=== PATIENT | female | born 1970 | race Caucasian/White ===

== ENCOUNTER → 2016-06-04 | Outpatient (REF) | payer OTHER ==
[~2016-06-04] MED LIST: MECL-68 PO; MOTRIN PO; NO HISTORICAL MEDS; NORC5TAB PO
== END ==
LOC: M SFHCPLAZ 16:46
PROVIDERS: ATTEND Nurse Practitioner Family
DX: J02.9 Acute pharyngitis, unspecified (principal)

== ENCOUNTER 2016-06-13 07:03 | Emergency (ER) | payer MEDICAID, OTHER, SELFPAY ==
--- NOTE | 2016-06-13 07:51 | EDDOCDS ---
Nurse's Notes [facility] Name: Thi Sandoval Age: 45 yrs Sex: Female : 1970 Arrival Date: 06/13/2016 Time: 07:03 Bed I1 / M1 Private MD: Diagnosis: Sprain of unspecified ligament of left ankle Presentation: 06/13 07:12 Presenting complaint: Patient states: pain left ankle. reports fell last night and kr3 twisted left ankle. Difficulty with weight bearing. Adult Sepsis Screening: The patient does not have new or worsening altered mentation. Patient's respiratory rate is less than 22. Systolic blood pressure is greater than 100. Patient has a qSOFA score of 0- Negative Sepsis Screen. Suicide/Homicide risk assessment- the patient denies having any suicidal and/or homicidal ideations and does not present with any other emotional, behavioral or mental health complaints. Status: Patient is not a member services coordinator or dependent. Transition of care: patient was not received from another setting of care. 07:12 Acuity: ROCIO Level 4 kr3 07:12 Method Of Arrival: Wheelchair kr3 Triage Assessment: 07:16 General: Appears comfortable, Behavior is appropriate for age, cooperative. Pain: kr3 Location: left ankle Pain currently is 6 out of 10 on a pain scale. At worst was 10 out of 10 on a pain scale. Aggravated by weight bearing. Pt Declines HIV testing. Neurological: No deficits noted. Respiratory: Respiratory effort is even, unlabored. Derm: Skin is normal. Musculoskeletal: Swelling present in left ankle. 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 Plaquenil 200 mg Oral tab 2 times per day 2. Folic Acid Oral once daily 3. Methotrexate Sodium Oral 4 tabs weekly 4. Singulair Oral once daily - PMHx: Lupus; - PSHx: Sinus Surgery; left hand; - Social history: Smoking status: Patient uses tobacco products, current every day smoker. No barriers to communication noted, The patient speaks fluent Salvadorean, Speaks appropriately for age. - Family history: Not pertinent. - : The pt / caregiver states he / she is not on anticoagulants. Home medication list is obtained from the patient. - Exposure Risk Screening:: None identified. Screenin:45 Screening information is obtained from the patient. Primary language is Salvadorean. Fall jam1 risk: No risks identified. Assistance ADL's: requires no assistance with activities of daily living. Abuse/DV Screen: The patient / caregiver reports he/she is: not in a situation that causes fear, pain or injury. Nutritional screening: No deficits noted. Exposure Risk Screening: None identified. Advance Directives: Currently, there is no health care proxy. There is no active DNR order. There is no living will. There is no Power of Sustainable Systems Analyst. Advance directive information has not previously been placed in an [facility] medical record. Further advance directive information is declined. home support is adequate. Assessment: 07:49 General: Appears well developed, well nourished, well groomed, Behavior is cooperative. dls Neurological: No deficits noted. EENT: No deficits noted. Cardiovascular: No deficits noted. Respiratory: No deficits noted. GI: No deficits noted. : No deficits noted. Derm: No deficits noted. Musculoskeletal: No deficits noted. Vital Signs: 07:16 BP 130 / 76; Pulse 98; Resp 16; Temp 97.4(O); Pulse Ox 99% ; Weight 94.8 kg (R); Height kr3 5 ft. 1 in. (154.94 cm) (R); 07:16 Body Mass Index 39.49 (94.80 kg, 154.94 cm) kr3 Vitals: 07:16 Log In Time: June 13, 2016 at 07:01. kr3 ED Course: 07:04 Patient visited by Kierra Levin. gjb 07:04 Patient moved to Waiting gjb 07:13 Triage Initiated kr3 07:20 Patient moved to I1 / M1 kr3 07:26 [facility]os[facility] Park [facility] ar2 07:26 Ty Jones MD is Attending Physician. ar2 07:30 Patient visited by Yosvany Park PA-C. ar2 07:41 Jeremie Gregory is Referral Physician. ar2 07:44 air cast left foot. jam1 07:50 The patient / caregiver is instructed regarding the plan of care and ED course. dls 07:50 No IV's were initiated during this patient's visit. No procedures done that require dls assistance. Order Results: There are currently no results for this order. Outcome: 07:42 Discharge ordered by Provider. ar2 07:50 Discharge Assessment: Patient awake, alert and oriented x 3. No cognitive and/or dls functional deficits noted. Patient verbalized understanding of disposition instructions. patient administered narcotics - no. The following High Risk Discharge criteria are identified: None. Discharged to home via wheelchair, with friend. Condition: stable. Discharge instructions given to patient, Instructed on discharge instructions, follow up and referral plans. medication usage, Demonstrated understanding of instructions, medications, Pt was receptive of discharge instructions/ teaching. Prescriptions given X 1. No special radiology studies were completed. Property sent home with patient. 07:51 Patient left the ED. dls Signatures: Sarah Chau, RN RN dls Josefa Leblanc, MARKETING ADMINISTRATIVE ASSISTANT MARKETING ADMINISTRATIVE ASSISTANT jam1 Kim Ferrara,RN RN kr3 Yosvany Park, ELOY-Gissell PA-Kierra Lynne TAZ
--- NOTE | 2016-06-13 07:51 | EDDOCDS ---
Physician Documentation [facility] Name: Thi Sandoval Age: 45 yrs Sex: Female : 1970 Arrival Date: 06/13/2016 Time: 07:03 Bed I1 / M1 Private MD: Disposition: 06/13/16 07:42 Discharged to Home/Self Care. Impression: Sprain of unspecified ligament of left ankle. - Condition is Stable. - Discharge Instructions: Elastic Bandage and RICE, Ankle Sprain. - Prescriptions for Ultram 50 mg Oral Tablet - take 1 tablet by ORAL route every 6 hours As needed MDD: 4 tabs; 12 tablet. - Medication Reconciliation, Local Pharmacy Hours form. - Follow up: Private Physician; When: Call to arrange an appointment; Reason: Recheck today's complaints. Follow up: Jeremie Gregory; When: As needed; Reason: Recheck today's complaints. - Problem is new. - Symptoms are unchanged. Historical: - Allergies: Codeine Sulfate (Vomit); - Home Meds: 1. Plaquenil 200 mg Oral tab 2 times per day 2. Folic Acid Oral once daily 3. Methotrexate Sodium Oral 4 tabs weekly 4. Singulair Oral once daily - PMHx: Lupus; - PSHx: Sinus Surgery; left hand; - Social history: Smoking status: Patient uses tobacco products, current every day smoker. No barriers to communication noted, The patient speaks fluent Syriac, Speaks appropriately for age. - Family history: Not pertinent. - : The pt / caregiver states he / she is not on anticoagulants. Home medication list is obtained from the patient. - Exposure Risk Screening:: None identified. 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 1 in. (154.94 cm) (R); 07:16 Body Mass Index 39.49 (94.80 kg, 154.94 cm) kr3 MDM: 07:21 Ankle, Complete Ordered. EDMS 07:38 Apply Air Cast to Patient. ordered. ar2 Signatures: Dispatcher MedHost EDMS Sarah Chau RN RN dls Kim Ferrara RN RN kr3 Yosvany Park PARupesh PARupesh ar2 The chart was reviewed and I authenticate all verbal orders and agree with the evaluation and treatment provided.Corrections: (The following items were deleted from the chart) 07:46 07:38 Crutches ordered. ar2 dls MTDD
--- NOTE | 2016-06-13 09:09 | REP ---
Left ankle series: Four views. History: Twisting injury in a fall. Findings: Four views of the left ankle demonstrate an intact ankle mortise. No fracture or subluxation is seen. Impression: Negative left ankle series. Signed by Coy Burgess MD 06/13/2016 01:10 P
--- NOTE | 2016-06-15 08:52 | EDDOCDS ---
Nurse's Notes [facility] Name: Thi Sandoval Age: 45 yrs Sex: Female : 1970 Arrival Date: 06/13/2016 Time: 07:03 Bed I1 / M1 Private MD: Diagnosis: Sprain of unspecified ligament of left ankle Presentation: 06/13 07:12 Presenting complaint: Patient states: pain left ankle. reports fell last night and kr3 twisted left ankle. Difficulty with weight bearing. Adult Sepsis Screening: The patient does not have new or worsening altered mentation. Patient's respiratory rate is less than 22. Systolic blood pressure is greater than 100. Patient has a qSOFA score of 0- Negative Sepsis Screen. Suicide/Homicide risk assessment- the patient denies having any suicidal and/or homicidal ideations and does not present with any other emotional, behavioral or mental health complaints. Status: Patient is not a sales agent food vending service or dependent. Transition of care: patient was not received from another setting of care. 07:12 Acuity: ROCIO Level 4 kr3 07:12 Method Of Arrival: Wheelchair kr3 Triage Assessment: 07:16 General: Appears comfortable, Behavior is appropriate for age, cooperative. Pain: kr3 Location: left ankle Pain currently is 6 out of 10 on a pain scale. At worst was 10 out of 10 on a pain scale. Aggravated by weight bearing. Pt Declines HIV testing. Neurological: No deficits noted. Respiratory: Respiratory effort is even, unlabored. Derm: Skin is normal. Musculoskeletal: Swelling present in left ankle. 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 Plaquenil 200 mg Oral tab 2 times per day 2. Folic Acid Oral once daily 3. Methotrexate Sodium Oral 4 tabs weekly 4. Singulair Oral once daily - PMHx: Lupus; - PSHx: Sinus Surgery; left hand; - Social history: Smoking status: Patient uses tobacco products, current every day smoker. No barriers to communication noted, The patient speaks fluent Kazakh, Speaks appropriately for age. - Family history: Not pertinent. - : The pt / caregiver states he / she is not on anticoagulants. Home medication list is obtained from the patient. - Exposure Risk Screening:: None identified. Screenin:45 Screening information is obtained from the patient. Primary language is Kazakh. Fall jam1 risk: No risks identified. Assistance ADL's: requires no assistance with activities of daily living. Abuse/DV Screen: The patient / caregiver reports he/she is: not in a situation that causes fear, pain or injury. Nutritional screening: No deficits noted. Exposure Risk Screening: None identified. Advance Directives: Currently, there is no health care proxy. There is no active DNR order. There is no living will. There is no Power of Retail Director. Advance directive information has not previously been placed in an [facility] medical record. Further advance directive information is declined. home support is adequate. Assessment: 07:49 General: Appears well developed, well nourished, well groomed, Behavior is cooperative. dls Neurological: No deficits noted. EENT: No deficits noted. Cardiovascular: No deficits noted. Respiratory: No deficits noted. GI: No deficits noted. : No deficits noted. Derm: No deficits noted. Musculoskeletal: No deficits noted. Vital Signs: 07:16 BP 130 / 76; Pulse 98; Resp 16; Temp 97.4(O); Pulse Ox 99% ; Weight 94.8 kg (R); Height kr3 5 ft. 1 in. (154.94 cm) (R); 07:16 Body Mass Index 39.49 (94.80 kg, 154.94 cm) kr3 Vitals: 07:16 Log In Time: June 13, 2016 at 07:01. kr3 ED Course: 07:04 Patient visited by Kierra Levin. gjb 07:04 Patient moved to Waiting gjb 07:13 Triage Initiated kr3 07:20 Patient moved to I1 / M1 kr3 07:26 Yosvany Park [facility] ar2 07:26 Ty Jones MD is Attending Physician. ar2 07:30 Patient visited by Yosvany Park PA-C. ar2 07:41 Jeremie Gregory is Referral Physician. ar2 07:44 air cast left foot. jam1 07:50 The patient / caregiver is instructed regarding the plan of care and ED course. dls 07:50 No IV's were initiated during this patient's visit. No procedures done that require dls assistance. 09:13 Ankle, Complete Returned. EDMS 09:23 [facility] Payment Agreement was scanned into Xfire and attached to record. lg 19:46 T-Sheet-- Draft Copy was scanned into Xfire and attached to record. klr Order Results: Radiology Order: Ankle, Complete Test: Ankle, Complete REASON FOR EXAMINATION: twisted ankle with fall; Left ankle series: Four views.; ; History: Twisting injury in a fall.; ; Findings: Four views of the left ankle demonstrate an intact ankle mortise. No; fracture or subluxation is seen.; ; Impression:; ; Negative left ankle series.; ; ; Signed by; Coy Burgess MD 06/13/2016 01:10 P; Outcome: 07:42 Discharge ordered by Provider. ar2 07:50 Discharge Assessment: Patient awake, alert and oriented x 3. No cognitive and/or dls functional deficits noted. Patient verbalized understanding of disposition instructions. patient administered narcotics - no. The following High Risk Discharge criteria are identified: None. Discharged to home via wheelchair, with friend. Condition: stable. Discharge instructions given to patient, Instructed on discharge instructions, follow up and referral plans. medication usage, Demonstrated understanding of instructions, medications, Pt was receptive of discharge instructions/ teaching. Prescriptions given X 1. No special radiology studies were completed. Property sent home with patient. 07:51 Patient left the ED. dls Signatures: Dispatcher [employer]Ho EDMS Sarah Chau, RN RN dls Josefa Leblanc, MINGLER OPERATOR MINGLER OPERATOR jam1 Haris Alba, Reg Reg lg Kim Ferrara RN RN kr3 Yosvany Park, PA-Gissell PA-C Kierra Cloud Kathie klhayley Chart Complete MTDD
--- NOTE | 2016-06-15 08:52 | EDDOCDS ---
Physician Documentation [facility] Name: Thi Sandoval Age: 45 yrs Sex: Female : 1970 Arrival Date: 06/13/2016 Time: 07:03 Bed I1 / M1 Private MD: Disposition: 06/13/16 07:42 Discharged to Home/Self Care. Impression: Sprain of unspecified ligament of left ankle. - Condition is Stable. - Discharge Instructions: Elastic Bandage and RICE, Ankle Sprain. - Prescriptions for Ultram 50 mg Oral Tablet - take 1 tablet by ORAL route every 6 hours As needed MDD: 4 tabs; 12 tablet. - Medication Reconciliation, Local Pharmacy Hours form. - Follow up: Private Physician; When: Call to arrange an appointment; Reason: Recheck today's complaints. Follow up: Jeremie Gregory; When: As needed; Reason: Recheck today's complaints. - Problem is new. - Symptoms are unchanged. Historical: - Allergies: Codeine Sulfate (Vomit); - Home Meds: 1. Plaquenil 200 mg Oral tab 2 times per day 2. Folic Acid Oral once daily 3. Methotrexate Sodium Oral 4 tabs weekly 4. Singulair Oral once daily - PMHx: Lupus; - PSHx: Sinus Surgery; left hand; - Social history: Smoking status: Patient uses tobacco products, current every day smoker. No barriers to communication noted, The patient speaks fluent Kinyarwanda, Speaks appropriately for age. - Family history: Not pertinent. - : The pt / caregiver states he / she is not on anticoagulants. Home medication list is obtained from the patient. - Exposure Risk Screening:: None identified. 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 1 in. (154.94 cm) (R); 07:16 Body Mass Index 39.49 (94.80 kg, 154.94 cm) kr3 MDM: 07:21 Ankle, Complete Ordered. EDMS 07:38 Apply Air Cast to Patient. ordered. ar2 09:23 [facility] Payment Agreement was scanned into MEDHOST and attached to record. lg 19:46 T-Sheet-- Draft Copy was scanned into [employer]a-[employer] Mobile and attached to record. klr Signatures: Dispatcher MedHost Sarah Rubin RN RN Haris Freitas, Gentry Reg Kim Ferrara RN RN kr3 Yosvany Park, Cassie Bennett PA-C The chart was reviewed and I authenticate all verbal orders and agree with the evaluation and treatment provided.Corrections: (The following items were deleted from the chart) 07:46 07:38 Crutches ordered. ramez vázquez Attachments: 09:23 [facility] Payment Agreement lg 19:46 T-Sheet-- Draft Copy klr Chart Complete MTDD
--- NOTE | 2016-06-15 08:52 | EDDOCDS ---
Physician Documentation [facility] Name: Thi Sandoval Age: 45 yrs Sex: Female : 1970 Arrival Date: 06/13/2016 Time: 07:03 Bed I1 / M1 Private MD: Disposition: 06/13/16 07:42 Discharged to Home/Self Care. Impression: Sprain of unspecified ligament of left ankle. - Condition is Stable. - Discharge Instructions: Elastic Bandage and RICE, Ankle Sprain. - Prescriptions for Ultram 50 mg Oral Tablet - take 1 tablet by ORAL route every 6 hours As needed MDD: 4 tabs; 12 tablet. - Medication Reconciliation, Local Pharmacy Hours form. - Follow up: Private Physician; When: Call to arrange an appointment; Reason: Recheck today's complaints. Follow up: Jeremie Gregory; When: As needed; Reason: Recheck today's complaints. - Problem is new. - Symptoms are unchanged. Historical: - Allergies: Codeine Sulfate (Vomit); - Home Meds: 1. Plaquenil 200 mg Oral tab 2 times per day 2. Folic Acid Oral once daily 3. Methotrexate Sodium Oral 4 tabs weekly 4. Singulair Oral once daily - PMHx: Lupus; - PSHx: Sinus Surgery; left hand; - Social history: Smoking status: Patient uses tobacco products, current every day smoker. No barriers to communication noted, The patient speaks fluent Bengali, Speaks appropriately for age. - Family history: Not pertinent. - : The pt / caregiver states he / she is not on anticoagulants. Home medication list is obtained from the patient. - Exposure Risk Screening:: None identified. 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 1 in. (154.94 cm) (R); 07:16 Body Mass Index 39.49 (94.80 kg, 154.94 cm) kr3 MDM: 07:21 Ankle, Complete Ordered. EDMS 07:38 Apply Air Cast to Patient. ordered. ar2 09:23 [facility] Payment Agreement was scanned into MEDHOST and attached to record. lg 19:46 T-Sheet-- Draft Copy was scanned into MEDHOCell[employer] and attached to record. klr Signatures: Dispatcher MedHost Sarah Rubin RN RN Haris Freitas, Gentry Reg Kim Ferrara RN RN kr3 Yosvany Park, Cassie Bennett PA-C The chart was reviewed and I authenticate all verbal orders and agree with the evaluation and treatment provided.Corrections: (The following items were deleted from the chart) 07:46 07:38 Crutches ordered. ramez vázquez Attachments: 09:23 [facility] Payment Agreement lg 19:46 T-Sheet-- Draft Copy klr Chart Complete MTDD
== END 2016-06-13 07:51 | disposition home or self-care (01) ==
LOC: M ED 07:03
DX: S93.402A Sprain of unspecified ligament of left ankle, initial encounter (principal); M32.9 Systemic lupus erythematosus, unspecified; F17.210 Nicotine dependence, cigarettes, uncomplicated; Z79.899 Other long term (current) drug therapy; Z88.5 Allergy status to narcotic agent; X50.1XXA Overexertion from prolonged static or awkward postures, initial encounter; Y92.410 Unspecified street and highway as the place of occurrence of the external cause; Y93.01 Activity, walking, marching and hiking; Y99.9 Unspecified external cause status

== ENCOUNTER → 2016-08-17 | Outpatient (REF) | payer OTHER | LOC: M LAB REF 16:59 | PROVIDERS: ATTEND Physician Assistant Medical | DX: J01.40 Acute pansinusitis, unspecified (principal) ==

== ENCOUNTER → 2016-09-17 | Outpatient (REF) | payer OTHER | LOC: M SFHCWAGY 14:00 | PROVIDERS: ATTEND Nurse Practitioner Women's Health | DX: Z12.4 Encounter for screening for malignant neoplasm of cervix (principal) ==

== ENCOUNTER → 2016-09-17 | Outpatient (CLI) | payer OTHER ==
--- NOTE | 2016-09-17 14:47 | REPMRS ---
Patient History The patient states she had a clinical breast exam in 08/2016. Patient is nulliparous. Family history of breast cancer in paternal aunt under age 50 and breast cancer in paternal grandmother at age 78. Digital Woman Screen Mammo: September 17, 2016 - Exam #: [id number] Bilateral CC and MLO view(s) were taken. Technologist: Deborah Dunaway, Technologist FINDINGS: The breast tissue is heterogeneously dense. This may lower the sensitivity of mammography. There is no evidence of cancer on this mammogram. ASSESSMENT: BI-RADS/ACR category 2 mammogram. Benign finding(s). Recommendation Routine screening mammogram of both breasts in 1 year (for women over age 40). This mammogram was interpreted with the aid of an FDA-approved computer-aided dectection system. Electronically Signed By: Hermilo Valdovinos MD 09/17/16 [id number]
== END ==
LOC: M WHC 13:02
PROVIDERS: ATTEND Nurse Practitioner Women's Health
DX: Z12.31 Encounter for screening mammogram for malignant neoplasm of breast (principal); Z80.3 Family history of malignant neoplasm of breast

== ENCOUNTER → 2016-10-27 | Outpatient (REF) | payer OTHER | LOC: M SFHCPLAZ 15:14 | PROVIDERS: ATTEND Nurse Practitioner Family | DX: Z00.00 Encounter for general adult medical examination without abnormal findings (principal); M32.9 Systemic lupus erythematosus, unspecified; Z13.220 Encounter for screening for lipoid disorders ==

== ENCOUNTER → 2016-11-15 | Outpatient (CLI) | payer OTHER ==
[2016-11-15 13:28] LABS: BASO % 0.5 % (0.0-1.0); EOS # 0.2 K/mm3 (0.0-0.50); EOS % 2.2 % (0.0-3.0); LARGE UNSTAINED CELL # 0.1 K/mm3 (0.0-0.4); LARGE UNSTAINED CELL % 1.3 % (0.0-4.0); LYMPH # 1.5 K/mm3 (1.5-4.5); LYMPH % 19.5 % (24.0-44.0); MEAN CORPUSCULAR HEMOGLOBIN 32.8 pg (27.0-33.0); MEAN CORPUSCULAR HGB CONC 33.4 g/dl (32.0-36.5); MEAN CORPUSCULAR VOLUME 98.2 fl (80.0-96.0); MONO # 0.4 K/mm3 (0.0-0.8); MONO % 4.9 % (0.0-5.0); NEUTROPHILS # 5.3 K/mm3 (1.8-7.7); NEUTROPHILS % 71.6 % (36.0-66.0); PLATELET COUNT, AUTOMATED 292 k/mm3 (150-450); RED CELL DISTRIBUTION WIDTH 13.6 % (11.5-14.5); WHITE BLOOD COUNT 7.4 K/mm3 (4.0-10.0)
[2016-11-15 14:27] LABS: ALBUMIN 3.5 GM/DL (3.2-5.2); ALBUMIN/GLOBULIN RATIO 0.95 (1.00-1.93); ALKALINE PHOSPHATASE 82 U/L (45-117); ALT/SGPT 24 U/L (12-78); ANION GAP 6 MEQ/L (8-16); AST/SGOT 19 U/L (15-37); BILIRUBIN,TOTAL 0.4 MG/DL (0.2-1.0); BLOOD UREA NITROGEN 12 MG/DL (7-18); CARBON DIOXIDE LEVEL 29 MEQ/L (21-32); CHLORIDE LEVEL 108 MEQ/L (98-107); CHOLESTEROL LEVEL 177 MG/DL (<200); CREATININE FOR GFR 0.73 MG/DL (0.55-1.02); GLOMERULAR FILTRATION RATE > 60.0 (>58); GLUCOSE, FASTING 83 MG/DL (70-105); POTASSIUM SERUM 4.3 MEQ/L (3.5-5.1); SODIUM LEVEL 143 MEQ/L (136-145); TOTAL PROTEIN 7.2 GM/DL (6.4-8.2); TRIGLYCERIDES LEVEL 89 MG/DL (<150)
== END ==
LOC: M LAB 12:27
PROVIDERS: ATTEND Nurse Practitioner Family
DX: M32.9 Systemic lupus erythematosus, unspecified (principal); K21.9 Gastro-esophageal reflux disease without esophagitis; Z13.220 Encounter for screening for lipoid disorders

== ENCOUNTER → 2017-05-03 | Outpatient (CLI) | payer OTHER ==
--- NOTE | 2017-05-03 11:14 | REP ---
Maxillofacial CT study without contrast: History: Chronic sinusitis. Comparison study from October 19, 2012. Technique: Helical scanning is acquired and axial 3 mm slices are reviewed along with coronal multiplanar reformation images. Findings: No intraorbital abnormality is seen. Visualized intracranial structures are unremarkable. There is moderate mucosal thickening affecting the maxillary sinuses bilaterally. On the right, this is generally a little more prominent than on the prior study of October 19, 2012. On the left it is essentially unchanged. There is a small bony density in the inferior aspect of the left maxillary sinus which is unchanged. The nasal turbinate soft tissues are improved. No polyp is seen today. The patient is status post bilateral ethmoidectomy and nasoantral window. These appear patent. Small frontal sinuses are clear. Mastoid aeration is normal and symmetric. No bony destructive lesion is seen. Mild bowing of the superior aspect of the nasal septum is again seen without a septal beak. Impression: Improved nasal findings. No evidence of polyp. Status post ethmoidectomy and nasoantral window bilaterally. Chronic moderate bilateral maxillary sinus mucosal thickening unchanged on the left and more prominent on the right. Signed by Coy Burgess MD 05/03/2017 03:59 P
== END ==
LOC: M RAD 10:22
PROVIDERS: ATTEND Physician Assistant Medical
DX: J32.1 Chronic frontal sinusitis (principal); J33.1 Polypoid sinus degeneration

== ENCOUNTER 2017-09-22 08:32 | Day surgery (SDC) | payer OTHER ==
[2017-09-22] MEDS: LR 1,000 ML IV (09:13)
[2017-09-22 09:42] LABS: CONTROL LINE UCG INT CTR LINE PRESENT; URINE PREG TEST NEGATIVE (NEGATIVE)
[2017-09-22] MEDS ORDERED: LIDOCAINE 2% INJ 100 MG/5 ML SDV (FOR ANES.) As Ordered (10:41)
[2017-09-22] MEDS ORDERED: KETOROLAC 60 MG/2 ML VIAL (J1885) As Ordered (10:41)
[2017-09-22] MEDS ORDERED: dexameTHASONE 4 MG/ML 1ML VIAL (J1100) As Ordered (10:41)
[2017-09-22] MEDS ORDERED: ONDANSETRON 4MG/2ML VIAL (J2405) As Ordered ×2 (10:41→11:59)
[2017-09-22] MEDS ORDERED: PROPOFOL 200 MG/20 ML VIAL As Ordered (10:41)
[2017-09-22] MEDS ORDERED: fentaNYL 100 MCG/2 ML INJECTION (J3010) As Ordered ×2 (10:42→12:00)
[2017-09-22] MEDS ORDERED: MIDAZOLAM INJ 2 MG/2 ML VIAL (J2250) As Ordered (10:42)
[2017-09-22] MEDS: CIPRODEX OTIC SUSP 7.5ML As Ordered (11:42)
[2017-09-22] MEDS: fentaNYL 100 MCG/2 ML INJECTION (J3010) IV ×4 (12:00→12:15)
[2017-09-22] MEDS ORDERED: PERCOCET 5MG/325MG TAB As Ordered (12:00)
[2017-09-22] MEDS: PERCOCET 5MG/325MG TAB PO (12:05)
[2017-09-22] MEDS: ONDANSETRON 4MG/2ML VIAL (J2405) IV (12:10)
[2017-09-22] MEDS ORDERED: LR 1,000 ML IV ×2 (12:15)
== END 2017-09-22 13:55 | disposition home or self-care (01) ==
LOC: M SDC 08:32
DX: H65.21 Chronic serous otitis media, right ear (principal); M32.9 Systemic lupus erythematosus, unspecified; K44.9 Diaphragmatic hernia without obstruction or gangrene; K21.9 Gastro-esophageal reflux disease without esophagitis; D68.9 Coagulation defect, unspecified; F41.9 Anxiety disorder, unspecified; G43.909 Migraine, unspecified, not intractable, without status migrainosus; Z88.5 Allergy status to narcotic agent; Z91.040 Latex allergy status; Z79.899 Other long term (current) drug therapy; Z72.0 Tobacco use; Z87.81 Personal history of (healed) traumatic fracture
CPT/HCPCS: 69436

== ENCOUNTER → 2018-07-28 | Outpatient (CLI) | payer OTHER ==
[~2018-07-28] MED LIST changes: +CETI10TA; +FOLI1TAB11; +HYDR200T3; +METH2.5T48; +MONT10TA2; +RANI150T
--- NOTE | 2018-07-28 14:27 | REP ---
PA and lateral chest: Comparison is 07/03/2012. The lung blanchard are clear. The cardiac size is normal. The jyoti, mediastinum, and skeletal structures are unremarkable. Impression: Negative PA and lateral chest. There is no interval change. Electronically Signed by Hermilo Rodriguez MD 07/28/2018 02:19 P
== END ==
LOC: M RAD 13:57
PROVIDERS: ATTEND Family Medicine
DX: R04.2 Hemoptysis (principal)

== ENCOUNTER → 2018-07-28 | Outpatient (REF) | payer OTHER ==
[2018-07-28 15:47] LABS: BASO # 0.1 10^3/uL (0.0-0.2); BASO % 0.6 % (0.0-1.0); EOS # 0.2 10^3/uL (0.0-0.50); EOS % 1.4 % (0.0-3.0); HEMATOCRIT 41.9 % (36.0-47.0); HEMOGLOBIN 13.9 g/dl (12.0-15.5); LYMPH # 1.6 10^3/uL (1.5-4.5); LYMPH % 14.6 % (24.0-44.0); MEAN CORPUSCULAR HEMOGLOBIN 32.1 pg (27.0-33.0); MEAN CORPUSCULAR HGB CONC 33.2 g/dl (32.0-36.5); MEAN CORPUSCULAR VOLUME 96.8 fl (80.0-96.0); MONO # 0.8 10^3/uL (0.0-0.8); MONO % 7.6 % (0.0-5.0); NEUTROPHILS # 8.4 10^3/uL (1.8-7.7); NEUTROPHILS % 75.3 % (36.0-66.0); PLATELET COUNT, AUTOMATED 314 10^3/uL (150-450); RED BLOOD COUNT 4.33 10^6/uL (4.00-5.40); WHITE BLOOD COUNT 11.1 10^3/uL (4.0-10.0)
[2018-07-28 15:58] LABS: INR 0.99; PROTHROMBIN TIME 13.2 SECONDS (12.1-14.4)
[2018-07-28 16:00] LABS: ALBUMIN 4.3 GM/DL (3.2-5.2); ALT/SGPT 35 U/L (12-78); BILIRUBIN,TOTAL 1.1 MG/DL (0.2-1.0); BLOOD UREA NITROGEN 11 MG/DL (7-18); CALCIUM LEVEL 8.7 MG/DL (8.5-10.1); CARBON DIOXIDE LEVEL 25 MEQ/L (21-32); CHLORIDE LEVEL 106 MEQ/L (98-107); CREATININE FOR GFR 0.76 MG/DL (0.55-1.30); GLOMERULAR FILTRATION RATE > 60.0 (>58); GLUCOSE, FASTING 76 MG/DL (70-100); POTASSIUM SERUM 3.9 MEQ/L (3.5-5.1); SODIUM LEVEL 139 MEQ/L (136-145); TOTAL PROTEIN 7.9 GM/DL (6.4-8.2)
[2018-07-28 16:01] LABS: D-DIMER QUANT 382.67 ng/ml (<500)
== END ==
LOC: M SFHCPLAZ 13:29
PROVIDERS: ATTEND Family Medicine
DX: R04.2 Hemoptysis (principal)

== ENCOUNTER → 2018-08-04 | Outpatient (CLI) | payer OTHER ==
[~2018-08-04] MED LIST changes: +ISOVUE-370 76% 125ML VIAL (Q9967 PER ML) As Ordered ONE
--- NOTE | 2018-08-04 18:00 | REP ---
CT of the chest with IV contrast: Comparisons are 10/25/2014 and 01/25/2020 [facility]. On 10/24/2014 there was a pleural-based left lower lobe lung nodule that had disappeared on 01/24/2015 and is no longer present today. On the study today there is a 9 mm pleural-based right lower lobe lung nodule on image 62 that was not present on either of the prior two studies. There are no other lung masses or nodules. There are no infiltrates or effusions. There is no mediastinal, hilar or axillary lymph node enlargement. Thoracic aorta is unremarkable. Cardiac size is normal. The visualized upper abdominal contents are unremarkable. There is no adrenal mass. Impression: New 9 mm pleural-based right lower lobe lung nodule. This is a category 4A lung nodule with the probability of malignancy 5- 15%. 3-month follow-up chest CT is recommended. Additionally, PET scan might be considered. Electronically Signed by Hermilo Rodriguez MD 08/04/2018 05:52 P
== END ==
LOC: M RAD 13:55
PROVIDERS: ATTEND Family Medicine
DX: R04.2 Hemoptysis (principal); R91.1 Solitary pulmonary nodule
CPT/HCPCS: 71260; Q9967

== ENCOUNTER → 2018-11-13 | Outpatient (CLI) | payer OTHER ==
[~2018-11-13] MED LIST changes: -ISOVUE-370 76% 125ML VIAL (Q9967 PER ML) As Ordered ONE
--- NOTE | 2018-11-13 11:58 | REP ---
Clinical: Solitary pulmonary nodule. Technique: Axial noncontrast images from the thoracic inlet to the upper abdomen with coronal and sagittal re-formations. Comparison: 08/04/2018, 01/24/2015. Findings: Previously identified 9 mm subpleural nodule in the posterior right lower lobe has resolved and likely represent a small focus of atelectasis. The lung blanchard are otherwise well aerated and clear. No consolidation, effusion, significant nodule or mass lesion appreciated. Tracheobronchial tree is patent. No obvious adenopathy. The mediastinum demonstrates normal thoracic aorta, pulmonary vasculature, and heart/pericardium. A small hiatal hernia at the gastroesophageal junction cannot be excluded. Musculoskeletal structures are intact. Impression: 1. No acute mediastinal or pleuroparenchymal process appreciated. 2. Previously noted 9 mm subpleural nodule in the posterior right lower lobe resolved and likely represented small focus of atelectasis. Electronically Signed by Paolo Betancourt MD 11/13/2018 11:50 A
== END ==
LOC: M RAD 11:01
PROVIDERS: ATTEND Internal Medicine Pulmonary Disease
DX: R91.1 Solitary pulmonary nodule (principal)

== ENCOUNTER → 2018-12-27 | Outpatient (REF) | payer OTHER ==
[2018-12-27 14:14] LABS: CHOLESTEROL RISK RATIO 3.235 (<5)
== END ==
LOC: M SFHCPLAZ 11:51
PROVIDERS: ATTEND Nurse Practitioner Family
DX: Z13.220 Encounter for screening for lipoid disorders (principal)

== ENCOUNTER → 2019-01-12 | Outpatient (REF) | payer OTHER ==
[2019-01-12 12:27] LABS: BASO # 0.1 10^3/uL (0.0-0.2); BASO % 0.7 % (0.0-1.0); EOS # 0.3 10^3/uL (0.0-0.50); EOS % 2.7 % (0.0-3.0); HEMATOCRIT 43.9 % (36.0-47.0); HEMOGLOBIN 14.3 g/dl (12.0-15.5); LYMPH # 1.8 10^3/uL (1.5-4.5); LYMPH % 18.5 % (24.0-44.0); MEAN CORPUSCULAR HEMOGLOBIN 33.1 pg (27.0-33.0); MEAN CORPUSCULAR HGB CONC 32.6 g/dl (32.0-36.5); MEAN CORPUSCULAR VOLUME 101.6 fl (80.0-96.0); MONO # 0.7 10^3/uL (0.0-0.8); MONO % 7.3 % (0.0-5.0); PLATELET COUNT, AUTOMATED 256 10^3/uL (150-450); RED BLOOD COUNT 4.32 10^6/uL (4.00-5.40)
[2019-01-12 12:30] LABS: APPEARANCE, URINE HAZY (CLEAR); BACTERIA, URINE AUTO 2+ (NEGATIVE); BILIRUBIN, URINE AUTO NEGATIVE (NEGATIVE); BLOOD, URINE BLOOD 1+ (NEGATIVE); COLOR, URINE YELLOW (YELLOW); GLUCOSE, URINE (UA) AUTO NEGATIVE (NEGATIVE); KETONE, URINE AUTO NEGATIVE (NEGATIVE); LEUKOCYTE ESTERASE, URINE AUTO TRACE (NEGATIVE); MUCUS, URINE SMALL (NEGATIVE); NITRITE, URINE AUTO NEGATIVE (NEGATIVE); PROTEIN, URINE AUTO NEGATIVE (NEGATIVE); RBC, URINE AUTO 5 /HPF (0-3); SPECIFIC GRAVITY URINE AUTO 1.021 (1.002-1.035); SQUAMOUS EPITHELIAL CELL UR AU 12 /HPF (0-6); UROBILINOGEN, URINE AUTO 0.2 mg/dL (0.0-2.0); WBC, URINE AUTO 5 /HPF (0-3)
[2019-01-12 12:37] LABS: INR 0.93; PROTHROMBIN TIME 12.2 SECONDS (11.8-14.0)
[2019-01-12 12:38] LABS: PARTIAL THROMBOPLASTIN TIME 33.2 SECONDS (25.0-38.4)
[2019-01-12 12:56] LABS: ALBUMIN 3.6 GM/DL (3.2-5.2); ALT/SGPT 22 U/L (12-78); BILIRUBIN,TOTAL 0.4 MG/DL (0.2-1.0); BLOOD UREA NITROGEN 10 MG/DL (7-18); CALCIUM LEVEL 8.9 MG/DL (8.5-10.1); CARBON DIOXIDE LEVEL 25 MEQ/L (21-32); CHLORIDE LEVEL 110 MEQ/L (98-107); CREATININE FOR GFR 0.71 MG/DL (0.55-1.30); FREE T4 0.85 NG/DL (0.76-1.46); GLOMERULAR FILTRATION RATE > 60.0 (>58); GLUCOSE, FASTING 79 MG/DL (70-100); POTASSIUM SERUM 4.5 MEQ/L (3.5-5.1); SODIUM LEVEL 139 MEQ/L (136-145); TOTAL PROTEIN 6.8 GM/DL (6.4-8.2)
[2019-01-12 17:05] LABS: VITAMIN B12 LEVEL 166 PG/ML
[2019-01-12 17:06] LABS: FOLATE 13.3 NG/ML
== END ==
LOC: M SFHCPLAZ 08:32
PROVIDERS: ATTEND Nurse Practitioner Family
DX: R63.4 Abnormal weight loss (principal); T14.8XXA Other injury of unspecified body region, initial encounter; X58.XXXA Exposure to other specified factors, initial encounter; Y92.9 Unspecified place or not applicable

== ENCOUNTER → 2019-01-26 | Outpatient (CLI) | payer OTHER ==
[~2019-01-26] MED LIST changes: +E-Z-GAS II EFFERVESCENT PACKET (SODIUM BICARB./CITRIC ACID/SIMETHICONE) As Ordered ONE; +E-Z-HD 98% w/w 340GM SUSP BTL As Ordered ONE; +E-Z-PAQUE 96% w/w SUSP 176GM BTL As Ordered ONE
--- NOTE | 2019-01-26 16:41 | REP ---
Esophagram The procedure was performed under the direct supervision of Dr. Valdovinos. The images were reviewed with Dr. Valdovinos. A single view PA chest x-ray is submitted as a country manager film. The superior mediastinal structures are midline. The heart size is within normal limits. The lungs are clear. Liquid barium and gas producing granules were given in the erect position as well as liquid barium in the prone oblique positions in order to perform a double contrast esophagram examination. The oral and pharyngeal stages of deglutition are unremarkable. Esophageal transport is prompt and efficient and there is no esophagitis, stricture or mucosal ring. There is a small sliding type hiatal hernia. There is gastroesophageal reflux demonstrated to above the level of the mariella. Impression: There is a small sliding-type hiatal hernia. There is gastroesophageal reflux demonstrated to above the level of the mariella. 0.9 minutes of fluoro time was utilized for this procedure. Reviewed by LYLE Leslie 01/26/2019 04:20 P Electronically Signed by Hermilo Valdovinos MD 01/26/2019 04:32 P
== END ==
LOC: M RAD 08:05
PROVIDERS: ATTEND Nurse Practitioner Family
DX: R63.4 Abnormal weight loss (principal); R13.10 Dysphagia, unspecified; R63.0 Anorexia; K44.9 Diaphragmatic hernia without obstruction or gangrene; K21.9 Gastro-esophageal reflux disease without esophagitis

== ENCOUNTER → 2019-04-26 | Outpatient (CLI) | payer OTHER ==
[~2019-04-26] MED LIST changes: -E-Z-GAS II EFFERVESCENT PACKET (SODIUM BICARB./CITRIC ACID/SIMETHICONE) As Ordered ONE; -E-Z-HD 98% w/w 340GM SUSP BTL As Ordered ONE; -E-Z-PAQUE 96% w/w SUSP 176GM BTL As Ordered ONE
--- NOTE | 2019-04-26 17:11 | REP ---
MRI brain: 04/26/2019. Indication: Headaches. Comparison: 05/18/2007. Technique: Multiplanar short and long TR sequences of the brain were obtained without IV Gadolinium. Findings: There are no areas of restricted diffusion. There is no intracranial mass effect, hydrocephalus or significant hemorrhage. No signal abnormalities of the brainstem or brain parenchyma are present. Mild chronic appearing bilateral maxillary sinus disease is noted. Tiny right mastoid effusion is noted as well. The large intracranial flow voids are unremarkable. The midline structures, and craniocervical junction are unremarkable. Impression: No acute intracranial process. Unremarkable brain. Electronically Signed by Terell Moyer DO 04/26/2019 05:03 P
== END ==
LOC: M RAD 15:38
PROVIDERS: ATTEND Family Medicine
DX: G43.019 Migraine without aura, intractable, without status migrainosus (principal)

== ENCOUNTER → 2019-05-10 | Outpatient (CLI) | payer OTHER ==
--- NOTE | 2019-05-11 09:37 | REPMRS ---
Patient History The patient states she had a clinical breast exam in April 2019.Family history of breast cancer at age 78 in paternal grandmother, breast cancer under age 50 in paternal aunt. Digital Woman Screen Mammo: May 10, 2019 - Exam #: [id number] Bilateral CC and MLO view(s) were taken. Technologist: Audra Cardenas, Technologist Prior study comparison: September 17, 2016, digital woman screen mammo performed at [facility] and [facility]. FINDINGS: The breast tissue is heterogeneously dense. This may lower the sensitivity of mammography. There is a moderate amount of heterogeneously dense fibroglandular tissue which is fairly symmetric. There is no interval development of dominant mass, architectural distortion, or grouped microcalcification typical of malignancy. There has been no change in the appearance of the mammogram from the prior studies. 3-D tomosynthesis shows no additional findings. Assessment: BI-RADS/ACR category 1 mammogram. Negative Mammogram. Recommendation Breast MRI of both breasts in 6 months. Routine screening mammogram of both breasts in 1 year (for women over age 40). This patient's Lifetime Breast Cancer RIsk is estimated at 22.3 %. Annual screening Breast MRI scanniing is recommended for patient's whose lifetime risk assessment is over 20%. This mammogram was interpreted with the aid of an FDA-approved computer-aided dectection system. Electronically Signed By: Antonio Burgess MD 05/11/19 0936
== END ==
LOC: M WHC 14:40
PROVIDERS: ATTEND Nurse Practitioner Women's Health
DX: Z12.31 Encounter for screening mammogram for malignant neoplasm of breast (principal); Z80.3 Family history of malignant neoplasm of breast

== ENCOUNTER → 2019-05-10 | Outpatient (REF) | payer OTHER | LOC: M PLALAB 15:00 | PROVIDERS: ATTEND Nurse Practitioner Women's Health | DX: Z12.4 Encounter for screening for malignant neoplasm of cervix (principal) ==

== ENCOUNTER → 2019-05-10 | Outpatient (CLI) | payer OTHER | LOC: M PLALAB 15:47 | PROVIDERS: ATTEND Nurse Practitioner Women's Health | DX: Z13.79 Encounter for other screening for genetic and chromosomal anomalies (principal); Z80.3 Family history of malignant neoplasm of breast ==

== ENCOUNTER → 2019-06-28 | Outpatient (REF) | payer OTHER ==
[~2019-06-28] MED LIST changes: -MONT10TA2; +MONT10TA4
== END ==
LOC: M SFHCWAGY 16:50
PROVIDERS: ATTEND Nurse Practitioner Women's Health
DX: R87.619 Unspecified abnormal cytological findings in specimens from cervix uteri (principal)

== ENCOUNTER → 2019-12-31 | Outpatient (CLI) | payer OTHER ==
[~2019-12-31] MED LIST changes: +PROHANCE 279.3MG/ML 15ML VIAL As Ordered ONE; +PROHANCE 279.3MG/ML 5ML VIAL As Ordered ONE
--- NOTE | 2020-02-14 15:38 | REP ---
BILATERAL BREAST MRI STUDY WITHOUT AND WITH INTRAVENOUS (IV) GADOLINIUM HISTORY: Dense breast tissue mammographically. Positive family history breast carcinoma. COMPARISON: Mammography 05/10/2019. GADOLINIUM ENHANCEMENT DOSE: 16 mL of intravenous ProHance is administered. MRI FINDINGS: There is a [id number] pattern of symmetrical fibroglandular tissue bilaterally corresponding with the mammographic findings. There is no evidence of axillary lymphadenopathy on either side. There are numerous small subcentimeter T2 hyperintensities consistent with cysts bilaterally. There is a marked pattern of background parenchymal enhancement. No suspicious morphologic abnormality is seen on pre or postcontrast MR images. Dynamically acquired sequential postcontrast images demonstrate the background parenchymal enhancement. No suspicious focus of enhancement and/or washout is seen in either breast to suggest malignancy. Subtraction images show no additional abnormality. IMPRESSION: BI-RADS category 2 benign findings. Repeat screening breast MRI scanning is recommended in one year. Annual screening mammography should continue as well. DOLLYD
== END ==
LOC: M RAD 08:30
PROVIDERS: ATTEND Nurse Practitioner Women's Health
DX: R92.0 Mammographic microcalcification found on diagnostic imaging of breast (principal); Z80.3 Family history of malignant neoplasm of breast; R92.2 Inconclusive mammogram
CPT/HCPCS: A9576; C8908

== ENCOUNTER → 2020-01-22 | Outpatient (CLI) | payer OTHER ==
[~2020-01-22] MED LIST changes: -PROHANCE 279.3MG/ML 15ML VIAL As Ordered ONE; -PROHANCE 279.3MG/ML 5ML VIAL As Ordered ONE
--- NOTE | 2020-02-20 09:58 | REPPI ---
RIGHT SHOULDER SERIES CLINICAL: Right shoulder pain. TECHNIQUE: Internal rotation, external rotation, and Y view of the right shoulder. FINDINGS: Very subtle spurring along the inferior margin of the acromioclavicular joint is suggested. The subacromial space is normal. The glenoid demonstrates very mild blunting and irregularity. The humeral head appears intact, and two plugs are identified from prior tendon repair. No acute fracture or dislocation. IMPRESSION: Mild degenerative changes. MTDD
--- NOTE | 2020-02-20 09:58 | REPPI ---
ACROMIOCLAVICULAR JOINT SERIES CLINICAL: Right shoulder pain. TECHNIQUE: Neutral and weightbearing views of the right and left acromioclavicular joints. FINDINGS: The bilateral acromioclavicular joints demonstrate relatively symmetric mild spurring. No further degenerative changes are appreciated. There is evidence for prior tendinous repair with two plugs in the right humeral head. IMPRESSION: Essentially symmetric age-appropriate appearance to the bilateral acromioclavicular joints. MTDD
== END ==
LOC: M PLAIMG 10:27
PROVIDERS: ATTEND Nurse Practitioner Family
DX: M25.511 Pain in right shoulder (principal)

== ENCOUNTER → 2020-10-14 | Outpatient (CLI) | payer OTHER ==
[~2020-10-14] MED LIST changes: +MONT10TA10; -MONT10TA4
[2020-10-14 13:23] LABS: BASO # 0.1 10^3/uL (0.0-0.2); BASO % 0.6 % (0.0-1.0); EOS # 0.2 10^3/uL (0.0-0.5); EOS % 2.1 % (0.0-3.0); HEMATOCRIT 41.4 % (36.0-47.0); LYMPH # 1.8 10^3/uL (1.5-5.0); MEAN CORPUSCULAR HEMOGLOBIN 33.4 pg (27.0-33.0); MEAN CORPUSCULAR HGB CONC 33.8 g/dl (32.0-36.5); MEAN CORPUSCULAR VOLUME 98.8 fl (80.0-96.0); MONO # 0.6 10^3/uL (0.0-0.8); NEUTROPHILS # 5.1 10^3/uL (1.5-8.5); NEUTROPHILS % 65.8 % (36.0-66.0); PLATELET COUNT, AUTOMATED 286 10^3/uL (150-450); RED BLOOD COUNT 4.19 10^6/uL (4.00-5.40); WHITE BLOOD COUNT 7.8 10^3/uL (4.0-10.0)
[2020-10-14 14:02] LABS: ALT/SGPT 27 U/L (12-78); BLOOD UREA NITROGEN 13 MG/DL (7-18); CALCIUM LEVEL 9.1 MG/DL (8.5-10.1); CARBON DIOXIDE LEVEL 24 MEQ/L (21-32); CHLORIDE LEVEL 107 MEQ/L (98-107); GLOMERULAR FILTRATION RATE > 60.0 (>58); GLUCOSE, FASTING 94 MG/DL (70-100); POTASSIUM SERUM 4.2 MEQ/L (3.5-5.1); SODIUM LEVEL 138 MEQ/L (136-145)
[2020-10-14 14:03] LABS: ALBUMIN 3.8 GM/DL (3.2-5.2); BILIRUBIN,TOTAL 0.6 MG/DL (0.2-1.0); FOLATE > 24.0 NG/ML; TOTAL 25(OH) VITAMIN D 28.6 NG/ML (30.0-100.0); TOTAL PROTEIN 7.3 GM/DL (6.4-8.2); VITAMIN B12 LEVEL 241 PG/ML
[2020-10-14 14:06] LABS: HEMOGLOBIN A1c 5.2 %
[2020-10-15 12:12] LABS: ANTINUCLEAR ANTIBODIES DIRECT Negative (Negative)
[2020-10-15 15:09] LABS: ALBUMIN 4.42 GM/DL (3.29-5.55); ALBUMIN % 60.5 % (55.8-66.1); ALPHA-2-GLOBULINS % 9.8 % (7.1-11.8); BETA-1-GLOBULINS % 5.9 % (4.7-7.2); BETA-2-GLOBULINS % 4.6 % (3.2-6.5); GAMMA GLOBULIN % 15.2 % (11.1-18.8)
[2020-10-15 15:10] LABS: ALPHA-1-GLOBULINS 0.29 GM/DL (0.17-0.41); ALPHA-2-GLOBULINS 0.72 GM/DL (0.42-0.99); BETA-1-GLOBULINS 0.43 GM/DL (0.28-0.60); BETA-2-GLOBULINS 0.34 GM/DL (0.19-0.55); GAMMA GLOBULINS 1.11 GM/DL (0.65-1.58)
== END ==
LOC: M LAB 12:32
PROVIDERS: ATTEND Psychiatry & Neurology Neurology
DX: G43.909 Migraine, unspecified, not intractable, without status migrainosus (principal)

== ENCOUNTER → 2020-11-11 | Outpatient (REF) | payer OTHER | LOC: M LAB REF 15:03 | PROVIDERS: ATTEND Otolaryngology | DX: J01.00 Acute maxillary sinusitis, unspecified (principal) ==

== ENCOUNTER → 2020-12-16 | Outpatient (CLI) | payer OTHER ==
--- NOTE | 2020-12-16 14:16 | REPVR ---
PROCEDURE INFORMATION: Exam: CT Maxillofacial Without Contrast, Sinus Exam date and time: 12/16/2020 11:19 AM Age: 50 years old Clinical indication: Sinusitis; Chronic; Additional info: Chronic sinutitis TECHNIQUE: Imaging protocol: CT Maxillofacial without contrast. Focus on the sinuses. Radiation optimization: All CT scans at this facility use at least one of these dose optimization techniques: automated exposure control; mA and/or kV adjustment per patient size (includes targeted exams where dose is matched to clinical indication); or iterative reconstruction. COMPARISON: CT Maxilofacial w/out contrast 05/03/2017 10:40 AM FINDINGS: Frontal sinuses: Normal. No air-fluid levels. Ethmoid air cells: There are ethmoidectomy changes. Sphenoid sinuses: Normal. No air-fluid levels. Maxillary sinuses: There are maxillary antrostomy changes. There is polypoid mucosal thickening along the floor of the right maxillary sign is. There is mild left maxillary sinus mucosal thickening. No air-fluid levels. Ostiomeatal units are patent. Nasal cavity/Septum: There are turbinectomy changes. There is hypertrophy of the inferior nasal turbinates. There is polypoid mucosal thickening within the nasal cavity. Orbital cavity: Orbits are normal. Globes are unremarkable. Bones/joints: Unremarkable. Soft tissues: Unremarkable. IMPRESSION: Postoperative appearance of the paranasal sinuses. Sinus mucosal disease as described. Electronically signed by: Silvia Smith On 12/16/2020 14:15:59 PM
== END ==
LOC: M RAD 10:51
PROVIDERS: ATTEND Otolaryngology
DX: J32.0 Chronic maxillary sinusitis (principal)

== ENCOUNTER → 2021-05-27 | Outpatient (REF) | payer OTHER | LOC: M LAB REF 17:11 | PROVIDERS: ATTEND Otolaryngology | DX: J01.00 Acute maxillary sinusitis, unspecified (principal); J32.0 Chronic maxillary sinusitis ==

== ENCOUNTER → 2021-12-03 | Outpatient (CLI) | payer BC ==
[~2021-12-03] MED LIST changes: -MONT10TA10; +MONT10TA97
== END ==
LOC: M RAD 15:09
PROVIDERS: ATTEND Otolaryngology
DX: J32.0 Chronic maxillary sinusitis (principal)

== ENCOUNTER → 2022-01-13 | Outpatient (CLI) | payer BC ==
[~2022-01-13] MED LIST changes: -METH2.5T48; +METH2.5T48 PO; -MONT10TA97; +MONT10TA97 PO
[2022-01-13 13:45] LABS: BLOOD UREA NITROGEN 15 MG/DL (7-18); CALCIUM LEVEL 9.1 MG/DL (8.5-10.1); CARBON DIOXIDE LEVEL 25 MEQ/L (21-32); CHLORIDE LEVEL 108 MEQ/L (98-107); CREATININE FOR GFR 0.63 MG/DL (0.55-1.30); GLOMERULAR FILTRATION RATE > 60.0 (>58); GLUCOSE, FASTING 85 MG/DL (70-100); POTASSIUM SERUM 3.7 MEQ/L (3.5-5.1); SODIUM LEVEL 139 MEQ/L (136-145)
[2022-01-13 14:46] LABS: TOTAL 25(OH) VITAMIN D 25.5 NG/ML (30.0-100.0)
[2022-01-13 14:47] LABS: VITAMIN B12 LEVEL 298 PG/ML (247-911)
== END ==
LOC: M LAB 11:38
PROVIDERS: ATTEND Internal Medicine Gastroenterology
DX: Z01.818 Encounter for other preprocedural examination (principal); R94.31 Abnormal electrocardiogram [ECG] [EKG]; R13.10 Dysphagia, unspecified; E55.9 Vitamin D deficiency, unspecified

== ENCOUNTER → 2022-01-13 | Outpatient (CLI) | payer BC | LOC: M EKG 11:24 | PROVIDERS: ATTEND Anesthesiology | DX: Z01.810 Encounter for preprocedural cardiovascular examination (principal); M32.9 Systemic lupus erythematosus, unspecified ==

== ENCOUNTER → 2022-01-17 | Outpatient (CLI) | payer BC | LOC: M LABSMTC 11:39 | PROVIDERS: ATTEND Anesthesiology | DX: Z01.818 Encounter for other preprocedural examination (principal); Z11.52 Encounter for screening for COVID-19 ==

== ENCOUNTER 2022-01-21 10:29 | Day surgery (SDC) | payer BC ==
[~2022-01-21] VITALS: Ht 160 cm; Wt 88.9 kg
[~2022-01-21 10:29] MED LIST changes: +dexameTHASONE 4 MG/ML 1ML VIAL (J1100 PER 1MG) IV ONE
[2022-01-21] MEDS ORDERED: LR 1,000 ML IV SCH ×2 (10:45→16:10)
[2022-01-21] MEDS ORDERED: SCOPOLAMINE 1MG TRANSDERMAL PATCH TOP ONE (11:30)
[2022-01-21] MEDS ORDERED: PROP40TA62 PO (11:32)
[2022-01-21] MEDS ORDERED: EPINEPHrine 1MG/ML INJ 30ML MD-VIAL As Ordered ONE ×2 (13:38→15:45)
[2022-01-21] MEDS ORDERED: SODIUM CHLORIDE 0.9% NASAL GEL 15GM (AYR) As Ordered ONE (13:38)
[2022-01-21] MEDS ORDERED: METHYLENE BLUE 0.5% (5MG/ML) 10 ML AMP (PROVAYBLUE) As Ordered ONE (13:38)
[2022-01-21] MEDS ORDERED: LIDOCAINE W/EPINEPHRINE 1% 20ML VIAL As Ordered ONE (13:38)
[2022-01-21] MEDS ORDERED: fentaNYL 250 MCG/5 ML INJECTION As Ordered ONE (14:12)
[2022-01-21] MEDS ORDERED: ROCURONIUM BROMIDE 50 MG/5 ML VIAL As Ordered ONE (14:12)
[2022-01-21] MEDS ORDERED: propofoL 200 MG/20 ML VIAL As Ordered ONE (14:12)
[2022-01-21] MEDS ORDERED: MIDAZOLAM INJ 2MG/2ML VIAL (J2250 PER 1MG) As Ordered ONE (14:12)
[2022-01-21] MEDS ORDERED: SUGAMMADEX SODIUM 500 MG/5 ML VIAL (BRIDION) As Ordered ONE (14:12)
[2022-01-21] MEDS ORDERED: LIDOCAINE 2% 100MG/5ML SDV (FOR ANES.) As Ordered ONE (14:12)
[2022-01-21] MEDS ORDERED: dexameTHASONE 4 MG/ML 1ML VIAL (J1100 PER 1MG) As Ordered ONE (14:12)
[2022-01-21] MEDS ORDERED: ONDANSETRON 4MG 2ML VIAL As Ordered ONE (14:12)
[2022-01-21] MEDS ORDERED: LACRILUBE (AKWA TEARS) OPHTH OINT 3.5 GM As Ordered ONE (14:13)
[2022-01-21] MEDS ORDERED: PHENYLephrine 500MCG 5ML (100MCG/ML) SYRINGE As Ordered ONE (14:16)
[2022-01-21] MEDS ORDERED: ACETAMINOPHEN 1000MG 100ML IV BTL (OFIRMEV) (J0131 PER 10MG) As Ordered ONE (15:57)
[2022-01-21] MEDS ORDERED: PERCOCET 5MG/325MG TAB PO PRN (16:10)
[2022-01-21] MEDS ORDERED: fentaNYL 100 MCG/2 ML INJECTION IV PRN (16:10)
[2022-01-21] MEDS ORDERED: MEPERIDINE INJ 25 MG/ML VIAL (J2175) IV PRN (16:10)
[2022-01-21] MEDS ORDERED: HYDROMORPHONE HCL 0.5 MG/ 0.5 ML SYRINGE (J1170 PER 1) IV PRN (16:10)
[2022-01-21] MEDS ORDERED: METOCLOPRAMIDE INJ 10MG/2ML VIAL (J2765 PER 1) IV PRN (16:10)
[2022-01-21] MEDS ORDERED: ONDANSETRON 4MG 2ML VIAL IV PRN (16:10)
[2022-01-21 17:41] VITALS: BP 136/79
== END 2022-01-21 18:00 | disposition home or self-care (01) ==
LOC: M SDC 10:29
PROVIDERS: ATTEND Otolaryngology
DX: J32.0 Chronic maxillary sinusitis (principal); J32.2 Chronic ethmoidal sinusitis; M32.9 Systemic lupus erythematosus, unspecified; C85.90 Non-Hodgkin lymphoma, unspecified, unspecified site; J30.9 Allergic rhinitis, unspecified; Z88.1 Allergy status to other antibiotic agents; Z88.5 Allergy status to narcotic agent; Z79.899 Other long term (current) drug therapy
CPT/HCPCS: 31254; 31267; 61782; 81025; 88305; C2625; J0131; J0171; J1100; J2250; J2370; J2405; J3010; Q9968

== ENCOUNTER → 2022-09-21 | Outpatient (CLI) | payer BC ==
[~2022-09-21] MED LIST changes: +PROP40TA62 PO; -dexameTHASONE 4 MG/ML 1ML VIAL (J1100 PER 1MG) IV ONE
== END ==
LOC: M RAD 08:06
PROVIDERS: ATTEND Internal Medicine Rheumatology
DX: M79.671 Pain in right foot (principal)

== ENCOUNTER → 2022-09-21 | Outpatient (CLI) | payer BC | LOC: M LAB 08:03 | PROVIDERS: ATTEND Allergy & Immunology Allergy | DX: D84.9 Immunodeficiency, unspecified (principal) ==

== ENCOUNTER → 2022-09-28 | Outpatient (CLI) | payer BC | LOC: M PLAIMG 08:17 | PROVIDERS: ATTEND Physician Assistant | DX: R07.81 Pleurodynia (principal) ==

== ENCOUNTER → 2022-10-26 | Outpatient (CLI) | payer BC ==
[~2022-10-26] MED LIST changes: +ACTE20IN SQ; +LOSA50TA5 PO; +PREG50CA2 PO
[2022-10-26 17:00] LABS: HEMATOCRIT 39.9 % (36.0-47.0); HEMOGLOBIN 13.3 g/dl (12.0-15.5); MEAN CORPUSCULAR HEMOGLOBIN 34.4 pg (27.0-33.0); MEAN CORPUSCULAR HGB CONC 33.3 g/dl (32.0-36.5); MEAN CORPUSCULAR VOLUME 103.1 fl (80.0-96.0); PLATELET COUNT, AUTOMATED 227 10^3/uL (150-450); RED BLOOD COUNT 3.87 10^6/uL (4.00-5.40); WHITE BLOOD COUNT 7.2 10^3/uL (4.0-10.0)
[2022-10-26 17:06] LABS: ERYTHROCYTE SEDIMENTATION RATE 2 mm/hr (0-30)
[2022-10-26 17:27] LABS: C REACTIVE PROTEIN QUANTITATIV < 0.40 MG/DL (<1.0)
[2022-10-26 17:29] LABS: ALBUMIN 3.7 G/DL (3.2-5.2); ALKALINE PHOSPHATASE 56 U/L (46-116); ALT/SGPT 30 U/L (7.0-40); AST/SGOT 17 U/L (<34); BILIRUBIN,TOTAL 0.5 MG/DL (0.3-1.2); BLOOD UREA NITROGEN 17 MG/DL (9-23); CARBON DIOXIDE LEVEL 30 MMOL/L (20-31); CHLORIDE LEVEL 105 MMOL/L (98-107); CREATININE FOR GFR 0.65 MG/DL (0.55-1.30); GLOMERULAR FILTRATION RATE > 60.0 (>51); GLUCOSE, FASTING 76 MG/DL (60-100); POTASSIUM SERUM 3.8 MMOL/L (3.5-5.1); SODIUM LEVEL 139 MMOL/L (136-145); TOTAL PROTEIN 6.4 G/DL (5.7-8.2)
== END ==
LOC: M PLALAB 12:49
PROVIDERS: ATTEND Internal Medicine Rheumatology
DX: M25.551 Pain in right hip (principal); M25.552 Pain in left hip; G89.29 Other chronic pain; Z79.899 Other long term (current) drug therapy

== ENCOUNTER 2022-10-28 09:15 | Day surgery (SDC) | payer BC ==
[~2022-10-28] VITALS: Ht 160 cm; Wt 91.4 kg
[~2022-10-28 09:15] MED LIST changes: -HYDR200T3; +HYDR200T46
[2022-10-28] MEDS ORDERED: LR 1,000 ML IV SCH ×2 (09:30→11:30)
[2022-10-28] MEDS ORDERED: CIPRODEX OTIC SUSP 7.5ML As Ordered ONE (10:53)
[2022-10-28] MEDS ORDERED: PHENYLEPHRINE 0.5% NASAL SPRAY 15 ML As Ordered ONE (10:53)
[2022-10-28] MEDS ORDERED: fentaNYL 100 MCG/2 ML INJECTION As Ordered ONE (11:14)
[2022-10-28] MEDS ORDERED: ONDANSETRON 4MG 2ML VIAL As Ordered ONE (11:14)
[2022-10-28] MEDS ORDERED: KETOROLAC 60MG 2ML VIAL As Ordered ONE (11:14)
[2022-10-28] MEDS ORDERED: propofoL 200 MG/20 ML VIAL As Ordered ONE (11:14)
[2022-10-28] MEDS ORDERED: LIDOCAINE 2% 100MG/5ML SDV (FOR ANES.) As Ordered ONE (11:14)
[2022-10-28] MEDS ORDERED: MIDAZOLAM INJ 2MG/2ML VIAL As Ordered ONE (11:14)
[2022-10-28] MEDS ORDERED: oxyCODONE 5MG TAB PO PRN (11:30)
[2022-10-28] MEDS ORDERED: HYDROMORPHONE HCL 0.5 MG/ 0.5 ML SYRINGE IV PRN (11:30)
[2022-10-28] MEDS ORDERED: ONDANSETRON 4MG 2ML VIAL IV PRN (11:30)
[2022-10-28] MEDS ORDERED: fentaNYL 100 MCG/2 ML INJECTION IV PRN (11:30)
[2022-10-28 12:02] VITALS: BP 152/74; TEMP 97.1; O2SAT 97
== END 2022-10-28 12:20 | disposition home or self-care (01) ==
LOC: M SDC 09:15
PROVIDERS: ATTEND Otolaryngology
DX: H69.91 Unspecified Eustachian tube disorder, right ear (principal); H90.41 Sensorineural hearing loss, unilateral, right ear, with unrestricted hearing on the contralateral side; J31.0 Chronic rhinitis; J32.0 Chronic maxillary sinusitis; H61.21 Impacted cerumen, right ear; C85.90 Non-Hodgkin lymphoma, unspecified, unspecified site; M32.9 Systemic lupus erythematosus, unspecified; R91.1 Solitary pulmonary nodule; K21.9 Gastro-esophageal reflux disease without esophagitis; K58.0 Irritable bowel syndrome with diarrhea; Z79.899 Other long term (current) drug therapy; Z79.2 Long term (current) use of antibiotics; Z88.5 Allergy status to narcotic agent; Z91.040 Latex allergy status
CPT/HCPCS: 69436; 81025; J1100; J1885; J2250; J2405; J3010

== ENCOUNTER → 2022-12-28 | Outpatient (CLI) | payer BC | LOC: M WHC 12:01 | PROVIDERS: ATTEND Physician Assistant | DX: Z12.31 Encounter for screening mammogram for malignant neoplasm of breast (principal) ==

== ENCOUNTER → 2023-01-07 | Outpatient (CLI) | payer BC ==
[2023-01-07 16:30] LABS: BLOOD UREA NITROGEN 15 MG/DL (9-23); CALCIUM LEVEL 9.4 MG/DL (8.5-10.1); CARBON DIOXIDE LEVEL 28 MMOL/L (20-31); CHLORIDE LEVEL 106 MMOL/L (98-107); CREATININE FOR GFR 0.69 MG/DL (0.55-1.30); GLOMERULAR FILTRATION RATE > 60.0 (>51); GLUCOSE, FASTING 78 MG/DL (60-100); POTASSIUM SERUM 4.1 MMOL/L (3.5-5.1); SODIUM LEVEL 139 MMOL/L (136-145)
[2023-01-07 16:32] LABS: TOTAL 25(OH) VITAMIN D 27.5 NG/ML (20.0-100.0); VITAMIN B12 LEVEL 314 PG/ML (211-911)
== END ==
LOC: M PLALAB 14:32
PROVIDERS: ATTEND Physician Assistant
DX: E55.9 Vitamin D deficiency, unspecified (principal)

== ENCOUNTER → 2023-01-11 | Outpatient (CLI) | payer BC | LOC: M WHC 11:07 | PROVIDERS: ATTEND Physician Assistant | DX: Z12.31 Encounter for screening mammogram for malignant neoplasm of breast (principal) ==

== ENCOUNTER → 2023-03-01 | Outpatient (REF) | payer BC ==
[~2023-03-01] MED LIST changes: -PREG50CA2 PO; +PREG50CA3 PO
== END ==
LOC: M SFHCWAGY 13:26
PROVIDERS: ATTEND Nurse Practitioner Family
DX: Z12.4 Encounter for screening for malignant neoplasm of cervix (principal); R87.615 Unsatisfactory cytologic smear of cervix

== ENCOUNTER → 2023-06-22 | Outpatient (CLI) | payer BC ==
[2023-06-22 18:28] LABS: ALBUMIN 3.7 G/DL (3.2-5.2); ALKALINE PHOSPHATASE 56 U/L (46-116); ALT/SGPT 27 U/L (7.0-40); AST/SGOT 21 U/L (<34); BILIRUBIN,TOTAL 0.7 MG/DL (0.3-1.2); BLOOD UREA NITROGEN 17 MG/DL (9-23); CALCIUM LEVEL 9.1 MG/DL (8.5-10.1); CARBON DIOXIDE LEVEL 30 MMOL/L (20-31); CHLORIDE LEVEL 107 MMOL/L (98-107); CREATININE FOR GFR 0.63 MG/DL (0.55-1.30); GLOMERULAR FILTRATION RATE > 60.0 (>51); GLUCOSE, FASTING 93 MG/DL (60-100); POTASSIUM SERUM 4.2 MMOL/L (3.5-5.1); SODIUM LEVEL 140 MMOL/L (136-145); TOTAL PROTEIN 6.4 G/DL (5.7-8.2)
== END ==
LOC: M PLALAB 15:13
PROVIDERS: ATTEND Nurse Practitioner Family
DX: Z01.812 Encounter for preprocedural laboratory examination (principal)

== ENCOUNTER → 2023-07-01 | Outpatient (CLI) | payer BC ==
[~2023-07-01] MED LIST changes: +PROHANCE 279.3MG/ML 15ML VIAL As Ordered ONE
== END ==
LOC: M RAD 10:28
PROVIDERS: ATTEND Nurse Practitioner Family
DX: Z91.89 Other specified personal risk factors, not elsewhere classified (principal)
CPT/HCPCS: 77049; A9576

== ENCOUNTER → 2023-08-03 | Outpatient (CLI) | payer BC ==
[~2023-08-03] MED LIST changes: +ISOVUE-370 76% 100ML VIAL ONE; -PROHANCE 279.3MG/ML 15ML VIAL As Ordered ONE
== END ==
LOC: M PLAIMG 09:11
PROVIDERS: ATTEND Otolaryngology
DX: K11.20 Sialoadenitis, unspecified (principal)

== ENCOUNTER → 2023-08-15 | Outpatient (CLI) | payer BC ==
[~2023-08-15] MED LIST changes: -FOLI1TAB11; +FOLI1TAB11 PO; -HYDR200T46; +HYDR200T46 PO; -ISOVUE-370 76% 100ML VIAL ONE; +LIDOCAINE 1% MDV 20ML VIAL As Ordered ONE; +LOSA100T46 PO; +MELO15TA28 PO; +ROSU10TA6 PO
[2023-08-15 12:40] VITALS: BP 157/96; TEMP 98; O2SAT 98
== END ==
LOC: M IRPRO 12:27
PROVIDERS: ATTEND Otolaryngology
DX: K11.20 Sialoadenitis, unspecified (principal)

== ENCOUNTER 2023-08-22 09:49 | Day surgery (SDC) | payer BC ==
[~2023-08-22] VITALS: Ht 160 cm; Wt 93.0 kg
[~2023-08-22 09:49] MED LIST changes: -LIDOCAINE 1% MDV 20ML VIAL As Ordered ONE
[2023-08-22] MEDS ORDERED: LR 1,000 ML IV SCH ×2 (10:25→14:10)
[2023-08-22] MEDS ORDERED: MIDAZOLAM INJ 2MG/2ML VIAL As Ordered ONE (12:56)
[2023-08-22] MEDS ORDERED: ONDANSETRON 4MG 2ML VIAL As Ordered ONE (12:56)
[2023-08-22] MEDS ORDERED: PHENYLephrine 500MCG 5ML (100MCG/ML) SYRINGE As Ordered ONE (12:56)
[2023-08-22] MEDS ORDERED: ePHEDrine SULFATE 25 MG/5 ML(5MG/ML) SYRINGE As Ordered ONE (12:56)
[2023-08-22] MEDS ORDERED: propofoL 200 MG/20 ML VIAL As Ordered ONE (12:56)
[2023-08-22] MEDS ORDERED: LIDOCAINE 2% 100MG/5ML SDV (FOR ANES.) As Ordered ONE (12:56)
[2023-08-22] MEDS ORDERED: fentaNYL 100 MCG/2 ML INJECTION As Ordered ONE (13:01)
[2023-08-22] MEDS ORDERED: ACETAMINOPHEN 1000MG 100ML IV BAG As Ordered ONE (13:27)
[2023-08-22] MEDS: CIPRODEX OTIC SUSP 7.5ML As Ordered ONE (13:35)
[2023-08-22] MEDS: PHENYLEPHRINE 0.5% NASAL SPRAY 15 ML As Ordered ONE (13:36)
[2023-08-22] MEDS: EPINEPHrine 1MG/ML INJ 30ML MD-VIAL As Ordered ONE (13:41)
[2023-08-22] MEDS: METHYLENE BLUE 0.5% (5MG/ML) 10 ML AMP (PROVAYBLUE) As Ordered ONE (13:41)
[2023-08-22] MEDS ORDERED: HYDROMORPHONE HCL 0.5 MG/ 0.5 ML SYRINGE IV PRN (14:10)
[2023-08-22] MEDS ORDERED: fentaNYL 100 MCG/2 ML INJECTION IV PRN (14:10)
[2023-08-22] MEDS ORDERED: ONDANSETRON 4MG 2ML VIAL IV PRN (14:10)
[2023-08-22] MEDS ORDERED: oxyCODONE 5MG TAB PO PRN (14:10)
[2023-08-22 14:40] VITALS: BP 154/88; TEMP 97.4; O2SAT 97
== END 2023-08-22 15:05 | disposition home or self-care (01) ==
LOC: M SDC 09:49
PROVIDERS: ATTEND Otolaryngology
DX: H69.81 Other specified disorders of Eustachian tube, right ear (principal); I10 Essential (primary) hypertension; E78.00 Pure hypercholesterolemia, unspecified; M32.9 Systemic lupus erythematosus, unspecified; G43.909 Migraine, unspecified, not intractable, without status migrainosus; Z79.899 Other long term (current) drug therapy; Z79.1 Long term (current) use of non-steroidal anti-inflammatories (NSAID); Z88.5 Allergy status to narcotic agent; Z91.040 Latex allergy status
CPT/HCPCS: 69436; 69705; J0131; J0171; J1100; J2250; J2371; J2405; J3010; Q9968

== ENCOUNTER 2023-12-07 09:00 | Day surgery (SDC) | payer BC ==
[~2023-12-07] VITALS: Ht 160 cm; Wt 90.5 kg
[~2023-12-07 09:00] MED LIST changes: +ACETAMINOPHEN 1000MG 100ML IV BAG As Ordered ONE; +ESOM40CA35 PO; +MIDAZOLAM INJ 2MG/2ML VIAL As Ordered ONE; -ROSU10TA6 PO; +ROSU10TA61 PO; +SUCR1TAB56 PO; +propofoL 200 MG/20 ML VIAL As Ordered ONE; +propofoL 500 MG/50 ML VIAL As Ordered ONE
[2023-12-07] MEDS: ceFAZolin SOD 2 GM in IV 1 EA IV ONE (09:50)
[2023-12-07] MEDS: LIDOCAINE 1% SDV 30ML VIAL As Ordered ONE (09:57)
[2023-12-07 11:05] VITALS: BP 139/88; TEMP 97.2; O2SAT 97
== END 2023-12-07 11:11 | disposition home or self-care (01) ==
LOC: M SDC 09:00
PROVIDERS: ATTEND Podiatrist Foot & Ankle Surgery
DX: M67.471 Ganglion, right ankle and foot (principal); M25.871 Other specified joint disorders, right ankle and foot; I10 Essential (primary) hypertension; E78.00 Pure hypercholesterolemia, unspecified; M32.9 Systemic lupus erythematosus, unspecified; Z79.899 Other long term (current) drug therapy; Z79.1 Long term (current) use of non-steroidal anti-inflammatories (NSAID); L30.9 Dermatitis, unspecified
CPT/HCPCS: 28092; 81025; 88300; 88304; J0131; J0665; J0690; J2250

== ENCOUNTER → 2024-01-26 | Outpatient (CLI) | payer BC ==
[~2024-01-26] MED LIST changes: -ACETAMINOPHEN 1000MG 100ML IV BAG As Ordered ONE; -MIDAZOLAM INJ 2MG/2ML VIAL As Ordered ONE; -propofoL 200 MG/20 ML VIAL As Ordered ONE; -propofoL 500 MG/50 ML VIAL As Ordered ONE
[2024-01-26 16:00] LABS: BLOOD UREA NITROGEN 14 MG/DL (9-23); CALCIUM LEVEL 9.3 MG/DL (8.5-10.1); CARBON DIOXIDE LEVEL 29 MMOL/L (20-31); CHLORIDE LEVEL 107 MMOL/L (98-107); CREATININE FOR GFR 0.72 MG/DL (0.55-1.30); GLOMERULAR FILTRATION RATE > 60.0 (>51); GLUCOSE, FASTING 86 MG/DL (60-100); MAGNESIUM LEVEL 1.9 MG/DL (1.8-2.4); POTASSIUM SERUM 4.3 MMOL/L (3.5-5.1); SODIUM LEVEL 140 MMOL/L (136-145)
[2024-01-26 16:03] LABS: TOTAL 25(OH) VITAMIN D 37.8 NG/ML (20.0-100.0); VITAMIN B12 LEVEL 342 PG/ML (211-911)
== END ==
LOC: M PLALAB 12:51
PROVIDERS: ATTEND Physician Assistant
DX: E55.9 Vitamin D deficiency, unspecified (principal)

== ENCOUNTER → 2024-02-10 | Outpatient (CLI) | payer BC | LOC: M WHC 14:53 | PROVIDERS: ATTEND Otolaryngology | DX: K11.20 Sialoadenitis, unspecified (principal) ==

== ENCOUNTER → 2024-03-02 | Outpatient (CLI) | payer BC ==
[2024-03-02 17:17] LABS: PARTIAL THROMBOPLASTIN TIME 31.2 SECONDS (24.8-34.2); PROTHROMBIN TIME 12.9 SECONDS (12.5-14.5)
[2024-03-02 17:31] LABS: BASO # 0.1 10^3/uL (0.0-0.2); BASO % 1.2 % (0.0-1.0); EOS # 0.5 10^3/uL (0.0-0.5); EOS % 8.4 % (0.0-3.0); HEMATOCRIT 37.9 % (36.0-47.0); HEMOGLOBIN 13.8 g/dl (12.0-15.5); LYMPH # 1.3 10^3/uL (1.5-5.0); MEAN CORPUSCULAR HEMOGLOBIN 38.8 pg (27.0-33.0); MEAN CORPUSCULAR HGB CONC 36.4 g/dl (32.0-36.5); MEAN CORPUSCULAR VOLUME 106.5 fl (80.0-96.0); MONO # 0.6 10^3/uL (0.0-0.8); MONO % 11.2 % (2.0-8.0); NEUTROPHILS # 3.2 10^3/uL (1.5-8.5); NEUTROPHILS % 55.9 % (36.0-66.0); PLATELET COUNT, AUTOMATED 208 10^3/uL (150-450); RED BLOOD COUNT 3.56 10^6/uL (4.00-5.40); WHITE BLOOD COUNT 5.7 10^3/uL (4.0-10.0)
[2024-03-02 17:50] LABS: ALBUMIN 3.8 G/DL (3.2-5.2); ALKALINE PHOSPHATASE 66 U/L (46-116); ALT/SGPT 36 U/L (7.0-40); AST/SGOT 25 U/L (<34); BILIRUBIN,TOTAL 0.7 MG/DL (0.3-1.2); BLOOD UREA NITROGEN 20 MG/DL (9-23); CALCIUM LEVEL 9.8 MG/DL (8.5-10.1); CARBON DIOXIDE LEVEL 30 MMOL/L (20-31); CHLORIDE LEVEL 106 MMOL/L (98-107); CREATININE FOR GFR 0.73 MG/DL (0.55-1.30); GLOMERULAR FILTRATION RATE > 60.0 (>51); GLUCOSE, FASTING 74 MG/DL (60-100); POTASSIUM SERUM 4.4 MMOL/L (3.5-5.1); SODIUM LEVEL 140 MMOL/L (136-145); TOTAL PROTEIN 6.7 G/DL (5.7-8.2)
== END ==
LOC: M PLALAB 12:51
PROVIDERS: ATTEND Family Medicine
DX: I10 Essential (primary) hypertension (principal)

== ENCOUNTER 2024-03-07 10:35 | Observation (INO) | payer BC ==
[2024-03-07] VITALS (7 sets, daily range): BP systolic 99–135; BP diastolic 55–81; TEMP 96.7–97.3; O2SAT 92–95
[~2024-03-07] VITALS: Ht 160 cm; Wt 85.6 kg
[2024-03-07] MEDS ORDERED: fentaNYL 100 MCG/2 ML INJECTION IV PRN ×2 (11:30→17:35)
[2024-03-07] MEDS: SCOPOLAMINE 1MG TRANSDERMAL PATCH TOP SCH (11:59)
[2024-03-07] MEDS ORDERED: ACETAMINOPHEN 1000MG 100ML IV BAG As Ordered ONE (14:12)
[2024-03-07] MEDS ORDERED: LIDOCAINE 2% 100MG/5ML SDV (FOR ANES.) As Ordered ONE (14:12)
[2024-03-07] MEDS ORDERED: ROCURONIUM BROMIDE 50MG/5ML VIAL As Ordered ONE (14:12)
[2024-03-07] MEDS ORDERED: ONDANSETRON 4MG 2ML VIAL As Ordered ONE (14:12)
[2024-03-07] MEDS ORDERED: propofoL 200 MG/20 ML VIAL As Ordered ONE (14:12)
[2024-03-07] MEDS ORDERED: MIDAZOLAM INJ 2MG/2ML VIAL As Ordered ONE (14:13)
[2024-03-07] MEDS ORDERED: fentaNYL 100 MCG/2 ML INJECTION As Ordered ONE (14:13)
[2024-03-07] MEDS ORDERED: dexmedeTOMIDine (4MCG/ML)200MCG/50ML BTL (PRECEDEX) As Ordered ONE (14:17)
[2024-03-07] MEDS ORDERED: SUCCINYLCHOLINE 100MG/5ML SYRINGE As Ordered ONE (15:00)
[2024-03-07] MEDS ORDERED: LACRILUBE (AKWA TEARS) OPHTH OINT 3.5GM As Ordered ONE (15:02)
[2024-03-07] MEDS ORDERED: SUGAMMADEX SODIUM 500 MG/5 ML VIAL (BRIDION) As Ordered ONE (15:14)
[2024-03-07] MEDS ORDERED: METOCLOPRAMIDE INJ 10MG/2ML VIAL As Ordered ONE (15:14)
[2024-03-07] MEDS: LIDOCAINE W/EPINEPHRINE 1% 20ML VIAL As Ordered ONE (15:30)
[2024-03-07] MEDS ORDERED: GLYCOPYRROLATE INJ 0.2 MG/ML 2 ML VIAL As Ordered ONE (15:37)
[2024-03-07] MEDS ORDERED: ePHEDrine SULFATE 25 MG/5 ML(5MG/ML) SYRINGE As Ordered ONE (15:38)
[2024-03-07] MEDS: METHYLENE BLUE 0.5% (5MG/ML) 10 ML AMP (PROVAYBLUE) As Ordered ONE (16:30)
[2024-03-07] MEDS: EPINEPHrine 1MG/ML INJ 30ML MD-VIAL As Ordered ONE (16:30)
[2024-03-07] MEDS: BACITRACIN OINTMENT 30GM TUBE As Ordered ONE (17:27)
[2024-03-07] MEDS ORDERED: ONDANSETRON 4MG 2ML VIAL IV PRN (17:35)
[2024-03-07] MEDS ORDERED: MORPHINE 2 MG/ML 1ML VIAL IV PRN (17:35)
[2024-03-07] MEDS: oxyCODONE 5MG TAB PO PRN (19:22)
[2024-03-07] MEDS ORDERED: PROPRANOLOL 20 MG TAB PO SCH (21:00)
[2024-03-07] MEDS ORDERED: PROP20TA72 PO (21:37)
[2024-03-07] MEDS: PREGABALIN 50 MG CAP (LYRICA) PO SCH (21:52)
[2024-03-07] MEDS: AUGMENTIN 875 MG TAB PO SCH (21:52)
[2024-03-08 00:45] VITALS: BP 107/65; TEMP 97; O2SAT 96
[2024-03-08] MEDS: ACETAMINOPHEN 325 MG TAB PO PRN (01:24)
[2024-03-08] MEDS: oxyCODONE 5MG TAB PO PRN (01:24)
[2024-03-08 04:00] VITALS: BP 107/57; TEMP 97.3; O2SAT 96
[2024-03-08 09:00] VITALS: BP 112/63; TEMP 97; O2SAT 96
[2024-03-08] MEDS: ROSUVASTATIN 10 MG TAB (CRESTOR) PO SCH (09:00)
[2024-03-08] MEDS: HYDROXYCHLOROQUINE 200 MG TAB PO SCH (09:00)
[2024-03-08] MEDS ORDERED: OMEPRAZOLE 20MG CAP PO SCH (09:00)
[2024-03-08] MEDS: PROPRANOLOL 20 MG TAB PO SCH (09:00)
[2024-03-08 09:02] VITALS: BP 112/63
[2024-03-08] MEDS: LOSARTAN 50MG TABLET PO SCH (09:02)
[2024-03-08] MEDS ORDERED: AMOX875T2 PO (09:26)
[2024-03-08] MEDS ORDERED: HYDR-3713 PO (09:26)
[2024-03-08] MEDS: OMEPRAZOLE 20MG CAP PO SCH (10:06)
== END 2024-03-08 12:30 | disposition home or self-care (01) ==
LOC: M SDC 10:35 → M RR INP 10:36 → M PED 19:59
PROVIDERS: ADMIT Internal Medicine Nephrology; ATTEND Otolaryngology
DX: D11.0 Benign neoplasm of parotid gland (principal); M32.9 Systemic lupus erythematosus, unspecified; I10 Essential (primary) hypertension; E78.5 Hyperlipidemia, unspecified; K44.9 Diaphragmatic hernia without obstruction or gangrene; K21.9 Gastro-esophageal reflux disease without esophagitis; D68.61 Antiphospholipid syndrome; J30.2 Other seasonal allergic rhinitis; J32.9 Chronic sinusitis, unspecified; G43.909 Migraine, unspecified, not intractable, without status migrainosus; Z83.3 Family history of diabetes mellitus; Z82.49 Family history of ischemic heart disease and other diseases of the circulatory system; Z87.891 Personal history of nicotine dependence; Z91.040 Latex allergy status; Z88.5 Allergy status to narcotic agent; Z79.899 Other long term (current) drug therapy
CPT/HCPCS: 42415; 88307; J0131; J0171; J0330; J1100; J1596; J2250; J2405; J2765; J3010; Q9968

== ENCOUNTER → 2024-08-22 | Outpatient (CLI) | payer BC ==
[~2024-08-22] MED LIST changes: +AMOX875T2 PO; +HYDR-3713 PO; +PROP20TA72 PO
[2024-08-22 15:44] LABS: IRON (FE) 76 UG/DL (50-170); PERCENT SATURATION 22.4 % (13.2-45.0); TOTAL IRON BINDING CAPACITY 339 UG/DL (250-425)
[2024-08-22 15:45] LABS: ALBUMIN 3.8 G/DL (3.2-5.2); ALKALINE PHOSPHATASE 64 U/L (35-104); ALT/SGPT 21 U/L (7.0-40); AST/SGOT 23 U/L (<34); BILIRUBIN,TOTAL 0.5 MG/DL (0.3-1.2); BLOOD UREA NITROGEN 14 MG/DL (9-23); CALCIUM LEVEL 8.9 MG/DL (8.5-10.1); CARBON DIOXIDE LEVEL 28 MMOL/L (20-31); CHLORIDE LEVEL 105 MMOL/L (98-107); CHOLESTEROL LEVEL 204 MG/DL (<200); CHOLESTEROL RISK RATIO 3.53 (<5); CREATININE FOR GFR 0.64 MG/DL (0.55-1.30); FREE T4 1.13 NG/DL (0.89-1.76); GLOMERULAR FILTRATION RATE > 60.0 (>51); GLUCOSE, FASTING 87 MG/DL (60-100); HDL CHOLESTEROL 57.7 MG/DL (>40); LDL CHOLESTEROL 124.1 MG/DL (<100); NON-HDL-C 146.3 MG/DL; SODIUM LEVEL 139 MMOL/L (136-145); TOTAL PROTEIN 6.8 G/DL (5.7-8.2); TRIGLYCERIDES LEVEL 111 MG/DL (<150)
[2024-08-22 15:46] LABS: FERRITIN 18.7 NG/ML (7.3-270.7); FOLATE > 24.0 NG/ML (>5.4)
[2024-08-22 15:47] LABS: TOTAL 25(OH) VITAMIN D 25.6 NG/ML (20.0-100.0); VITAMIN B12 LEVEL 372 PG/ML (211-911)
[2024-08-22 15:48] LABS: HEMATOCRIT 39.5 % (36.0-47.0); HEMOGLOBIN 13.3 g/dl (12.0-15.5); MEAN CORPUSCULAR HGB CONC 33.7 g/dl (32.0-36.5); PLATELET COUNT, AUTOMATED 256 10^3/uL (150-450); RED BLOOD COUNT 4.03 10^6/uL (4.00-5.40); WHITE BLOOD COUNT 6.9 10^3/uL (4.0-10.0)
[2024-08-22 16:08] LABS: HEMOGLOBIN A1c 5.5 % (4.0-6.0)
== END ==
LOC: M PLALAB 12:23
PROVIDERS: ATTEND Nurse Practitioner Family
DX: D75.89 Other specified diseases of blood and blood-forming organs (principal); D68.61 Antiphospholipid syndrome; Z13.1 Encounter for screening for diabetes mellitus; E78.5 Hyperlipidemia, unspecified; Z13.29 Encounter for screening for other suspected endocrine disorder

== ENCOUNTER → 2024-09-12 | Outpatient (CLI) | payer BC | LOC: M RAD 08:01 | PROVIDERS: ATTEND Nurse Practitioner Family | DX: R10.11 Right upper quadrant pain (principal) ==

== ENCOUNTER → 2024-11-29 | Outpatient (CLI) | payer BC ==
[2024-11-29 14:32] LABS: CALCIUM LEVEL 8.8 MG/DL (8.5-10.1); CARBON DIOXIDE LEVEL 29 MMOL/L (20-31); CHLORIDE LEVEL 106 MMOL/L (98-107); CREATININE FOR GFR 0.69 MG/DL (0.55-1.30); GLOMERULAR FILTRATION RATE > 90.0 (>51); POTASSIUM SERUM 3.9 MMOL/L (3.5-5.1); SODIUM LEVEL 144 MMOL/L (136-145)
== END ==
LOC: M PLALAB 09:28
PROVIDERS: ATTEND Family Medicine
DX: Z01.810 Encounter for preprocedural cardiovascular examination (principal)

== ENCOUNTER → 2025-05-13 | Outpatient (CLI) | payer BC ==
[~2025-05-13] MED LIST changes: -ROSU10TA61 PO; +ROSU10TA90 PO
== END ==
LOC: M WHC 12:53
PROVIDERS: ATTEND Nurse Practitioner Family
DX: Z12.31 Encounter for screening mammogram for malignant neoplasm of breast (principal); R92.323 Mammographic fibroglandular density, bilateral breasts

== ENCOUNTER → 2025-05-13 | Outpatient (REF) | payer BC ==
[2025-05-15 16:02] LABS: HPV APTIMA Not Detected (Not Detected)
== END ==
LOC: M SFHCWAGY 15:49
PROVIDERS: ATTEND Nurse Practitioner Family
DX: Z12.4 Encounter for screening for malignant neoplasm of cervix (principal)